=== PATIENT | male | born 1970 | race Caucasian/White ===

== ENCOUNTER 2021-06-17 01:14 | Emergency (ER) | payer SELFPAY ==
[~2021-06-17] VITALS: Ht 180.3 cm; Wt 81.6 kg
[2021-06-17 01:15] VITALS: BP 126/75
[2021-06-17 04:15] VITALS: BP 117/73
== END 2021-06-17 04:15 ==
LOC: MED 01:14
DX: F10.129 Alcohol abuse with intoxication, unspecified (principal); Z02.89 Encounter for other administrative examinations; V89.2XXA Person injured in unspecified motor-vehicle accident, traffic, initial encounter; Y93.89 Activity, other specified; Y92.89 Other specified places as the place of occurrence of the external cause; Y99.8 Other external cause status
CPT/HCPCS: 99283